=== PATIENT | female | born 1935 | race Caucasian/White ===

== ENCOUNTER 2016-12-06 09:07 | Outpatient (CLI) | payer MEDICARE, BC ==
[2011-12-03 22:31] VITALS: O2SAT 93
== END 2016-12-06 09:08 | disposition home or self-care (01) | DRG 556 ==
LOC: CONVCARE 09:07
PROVIDERS: ATTEND Orthopaedic Surgery
DX: M25.552 Pain in left hip (principal)

== ENCOUNTER 2017-10-16 09:53 | Emergency (ER) | payer MEDICARE, BC ==
[2017-10-16 10:29] VITALS: RESP 20; TEMP 96.4
[2017-10-16] MEDS ORDERED: SODIUM CHLORIDE 0.9% 1000ML 1,000 ML IV ONE (10:38)
[2017-10-16] MEDS ORDERED: ONDANSETRON HCL 4 MG/2 ML SOL IV ONE (10:41)
[2017-10-16] MEDS ORDERED: ONDANSETRON HCL 4 MG/2 ML SOL ONE (10:48)
[2017-10-16 11:21] LABS: ALBUMIN 3.7 gm/dl (3.4-5.0); BILIRUBIN,TOTAL 0.8 mg/dl (0.2-1.0); CALCIUM 9.3 mg/dl (8.5-10.1); CARBON DIOXIDE 29.1 mEq/L (21-32); CREATININE 1.05 mg/dl (0.60-1.00); POTASSIUM 3.1 mMol/L (3.5-5.1); TOTAL PROTEIN 6.6 gm/dl (6.4-8.2)
[2017-10-16] MEDS ORDERED: POTASSIUM CHLORIDE 10 MEQ TER PO ONE (11:44)
[2017-10-16 11:48] LABS: BASOPHILS % (AUTO) 1 % (0-3); EOSINOPHILS % (AUTO) 0 % (0-9); HEMATOCRIT 40 % (35-47); HEMOGLOBIN 13.2 gm/dl (12.0-15.5); LYMPHOCYTES % (AUTO) 21.2 % (10-50); MEAN CORPUSCULAR HEMOGLOBIN 27.2 pg (27.0-32.0); MEAN CORPUSCULAR HGB CONC 32.7 gm/dl (32.0-36.0); MEAN CORPUSCULAR VOLUME 83 fL (81-99); MONOCYTES % (AUTO) 10.1 % (0-12); NEUTROPHILS % (AUTO) 67.7 % (37-80)
[2017-10-16] MEDS ORDERED: POTASSIUM CHLORIDE 10 MEQ TER ONE (11:49)
[2017-10-16 12:25] LABS: APPEARANCE,URINE Clear; BILIRUBIN,URINE NEGATIVE (NEGATIVE); COLOR,URINE Yellow; GLUCOSE, URINE (UA) NEGATIVE (NEGATIVE); KETONES,URINE NEGATIVE (NEGATIVE); LEUKOCYTE ESTERASE ,URINE NEGATIVE (NEGATIVE); NITRATE,URINE NEGATIVE (NEGATIVE); OCCULT BLOOD,URINE NEGATIVE (NEG-TRACE); UROBILINOGEN,URINE 0.2 (0.2-1.0 EU)
[2017-10-16 12:35] LABS: BACTERIA TRACE (< 1+); CRYSTALS NEGATIVE (0-3 AVE/HPF); EPITHELIAL CELLS 0-2 (SQUAMOUS); RBC,URINE NEG (0-3AV/HPF); WBC,URINE 0-1 (0-5AV/HPF)
[2017-10-16 14:20] VITALS: BP 164/95; PULSE 80; O2SAT 100
== END 2017-10-16 14:14 | disposition home or self-care (01) | DRG 392 ==
LOC: ED 09:53
DX: K21.9 Gastro-esophageal reflux disease without esophagitis (principal)
CPT/HCPCS: 36415; 74177; 80053; 81001; 85025; 96365; 96374; 99284; 99285; J2405; Q9967; A9270-GY

== ENCOUNTER 2017-11-01 09:37 | Inpatient (IN) | payer MEDICARE, BC ==
[2017-11-01] MEDS ORDERED: SODIUM CHLORIDE 0.9% FLUSH 10 ML SOL IV PRN (09:46)
[2017-11-01] MEDS ORDERED: MAGNESIUM HYDROXIDE 30 ML SUS PO PRN (09:50)
[2017-11-01] MEDS ORDERED: ONDANSETRON HCL 4 MG/2 ML SOL IV PRN (09:52)
[2017-11-01] MEDS ORDERED: SODIUM CHLORIDE 0.9% 1000 ML SOL IV SCH (10:00)
[2017-11-01] MEDS: POLYETHYLENE GLYCOL 17 GM/1 TBS PDS PO SCH (11:19)
[2017-11-01] MEDS: SODIUM CHLORIDE 0.9% 1000ML 1,000 ML IV SCH ×3 (12:16→22:13)
[2017-11-01] MEDS ORDERED: ACETAMINOPHEN 500 MG 500 MG TAB PO PRN ×2 (12:19→15:32)
[2017-11-01 13:42] LABS: APPEARANCE,URINE Clear; BILIRUBIN,URINE NEGATIVE (NEGATIVE); COLOR,URINE Light yellow; GLUCOSE, URINE (UA) NEGATIVE (NEGATIVE); KETONES,URINE NEGATIVE (NEGATIVE); LEUKOCYTE ESTERASE ,URINE TRACE (NEGATIVE); NITRATE,URINE NEGATIVE (NEGATIVE); OCCULT BLOOD,URINE NEGATIVE (NEG-TRACE)
[2017-11-01] MEDS ORDERED: [UNRECOGNIZED DRUG - OTHER] LEFTEYE SCH (14:00)
[2017-11-01] MEDS ORDERED: PEG LEFTEYE SCH (14:00)
[2017-11-01] MEDS ORDERED: PROPYLENE GLYCOL LEFTEYE SCH (14:00)
[2017-11-01 14:18] LABS: RBC,URINE NEGATIVE (0-3AV/HPF); WBC,URINE 0-1 (0-5AV/HPF)
[2017-11-01 14:19] LABS: BACTERIA 1+ (< 1+); CRYSTALS NEGATIVE (0-3 AVE/HPF); EPITHELIAL CELLS 0-1 (SQUAMOUS)
[2017-11-01 20:31] VITALS: RESP 16
[2017-11-01] MEDS: ENOXAPARIN 40 MG SOL SC SCH (20:34)
[2017-11-01] MEDS: PEG-400/PROPYLENE GLYCOL 1 DROP SOL LEFTEYE SCH (20:35)
[2017-11-01] MEDS: SIMVASTATIN 20 MG TAB PO SCH (20:35)
[2017-11-01] MEDS: TRAZODONE HYDROCHLORIDE 50 MG TAB PO SCH (20:35)
[2017-11-01] MEDS ORDERED: ESCITALOPRAM 10 MG TAB PO SCH (21:00)
[2017-11-02] MEDS: SODIUM CHLORIDE 0.9% 1000ML 1,000 ML IV SCH ×3 (06:24→22:50)
[2017-11-02] MEDS: LEVOTHYROXINE SODIUM 50 MCG TAB PO SCH (06:28)
[2017-11-02] MEDS ORDERED: LEVOTHYROXINE 0.025MG 0.025 MG TAB PO SCH (07:00)
[2017-11-02 07:12] LABS: BASOPHILS % (AUTO) 1 % (0-3); EOSINOPHILS % (AUTO) 0 % (0-9); HEMATOCRIT 39 % (35-47); HEMOGLOBIN 12.8 gm/dl (12.0-15.5); LYMPHOCYTES % (AUTO) 23.6 % (10-50); MEAN CORPUSCULAR HEMOGLOBIN 27.2 pg (27.0-32.0); MEAN CORPUSCULAR HGB CONC 32.9 gm/dl (32.0-36.0); MEAN CORPUSCULAR VOLUME 83 fL (81-99); MONOCYTES % (AUTO) 9.2 % (0-12); NEUTROPHILS % (AUTO) 65.8 % (37-80)
[2017-11-02 07:19] LABS: CALCIUM 8.3 mg/dl (8.5-10.1); CREATININE 0.95 mg/dl (0.60-1.00); POTASSIUM 4.2 mMol/L (3.5-5.1)
[2017-11-02 07:24] LABS: CARBON DIOXIDE 27.2 mEq/L (21-32)
[2017-11-02] MEDS: ASPIRIN EC 81 MG PO SCH (08:50)
[2017-11-02] MEDS: METFORMIN HYDROCHLORIDE 500 MG TAB PO SCH (08:50)
[2017-11-02] MEDS: ESCITALOPRAM 10 MG TAB PO SCH ×2 (08:57→21:21)
[2017-11-02] MEDS: LISINOPRIL 20 MG TAB PO SCH (08:57)
[2017-11-02] MEDS: PEG-400/PROPYLENE GLYCOL 1 DROP SOL LEFTEYE SCH ×3 (08:57→21:19)
[2017-11-02] MEDS: POLYETHYLENE GLYCOL 17 GM/1 TBS PDS PO SCH (08:57)
[2017-11-02] MEDS ORDERED: PEG OP SCH (09:00)
[2017-11-02] MEDS ORDERED: PROPYLENE GLYCOL OP SCH (09:00)
[2017-11-02] MEDS ORDERED: ENOXAPARIN 40 MG SOL SC SCH (09:00)
[2017-11-02] MEDS ORDERED: MAGNESIUM CITRATE SOL PO PRN (09:27)
[2017-11-02 15:57] VITALS: TEMP 98.1
[2017-11-02] MEDS ORDERED: HYDROCORTISONE 2.5% TOP PRN (18:14)
[2017-11-02] MEDS: SIMVASTATIN 20 MG TAB PO SCH (21:08)
[2017-11-02] MEDS: ENOXAPARIN 40 MG SOL SC SCH (21:12)
[2017-11-02] MEDS: TRAZODONE HYDROCHLORIDE 50 MG TAB PO SCH (21:13)
[2017-11-03] MEDS: SODIUM CHLORIDE 0.9% 1000ML 1,000 ML IV SCH (04:33)
[2017-11-03] MEDS: PANTOPRAZOLE SODIUM 40 MG ECT PO SCH ×2 (06:30→08:57)
[2017-11-03] MEDS: LEVOTHYROXINE SODIUM 50 MCG TAB PO SCH (06:31)
[2017-11-03 07:30] LABS: BASOPHILS % (AUTO) 1 % (0-3); EOSINOPHILS % (AUTO) 1 % (0-9); HEMATOCRIT 38 % (35-47); HEMOGLOBIN 12.2 gm/dl (12.0-15.5); LYMPHOCYTES % (AUTO) 29.7 % (10-50); MEAN CORPUSCULAR HGB CONC 32.3 gm/dl (32.0-36.0); MEAN CORPUSCULAR VOLUME 84 fL (81-99); MONOCYTES % (AUTO) 9.2 % (0-12); NEUTROPHILS % (AUTO) 59.3 % (37-80)
[2017-11-03 07:38] LABS: CALCIUM 8.4 mg/dl (8.5-10.1); CARBON DIOXIDE 26.4 mEq/L (21-32); CREATININE 0.94 mg/dl (0.60-1.00); POTASSIUM 3.6 mMol/L (3.5-5.1)
[2017-11-03] MEDS: METFORMIN HYDROCHLORIDE 500 MG TAB PO SCH (08:54)
[2017-11-03] MEDS: LISINOPRIL 20 MG TAB PO SCH (08:54)
[2017-11-03] MEDS: ASPIRIN EC 81 MG PO SCH (08:54)
[2017-11-03] MEDS: PEG-400/PROPYLENE GLYCOL 1 DROP SOL LEFTEYE SCH (08:55)
[2017-11-03] MEDS: POLYETHYLENE GLYCOL 17 GM/1 TBS PDS PO SCH (08:58)
[2017-11-03 09:16] VITALS: PULSE 76; O2SAT 97
[2017-11-03 15:31] VITALS: BP 143/81
== END 2017-11-03 10:50 | disposition home or self-care (01) | DRG 641 ==
LOC: ACUTE CARE 09:39
PROVIDERS: ADMIT Family Medicine; ATTEND Family Medicine
DX: E87.1 Hypo-osmolality and hyponatremia (principal); R11.0 Nausea; I10 Essential (primary) hypertension; K59.00 Constipation, unspecified; E11.9 Type 2 diabetes mellitus without complications; F32.9 Major depressive disorder, single episode, unspecified
CPT/HCPCS: 36415; 80048; 81001; 82962; 85025; 87088; J1650; J2405; A9270-GY

== ENCOUNTER 2017-11-07 06:46 | Emergency (ER) | payer MEDICARE, BC ==
[2017-11-07 07:10] VITALS: TEMP 97.8
[2017-11-07] MEDS ORDERED: MECLIZINE HYDROCHLORIDE 12.5 MG TAB PO ONE (07:15)
[2017-11-07] MEDS ORDERED: MECLIZINE HYDROCHLORIDE 12.5 MG TAB ONE (07:17)
[2017-11-07 07:27] LABS: BASOPHILS % (AUTO) 1 % (0-3); EOSINOPHILS % (AUTO) 0 % (0-9); HEMATOCRIT 40 % (35-47); HEMOGLOBIN 12.8 gm/dl (12.0-15.5); LYMPHOCYTES % (AUTO) 20.4 % (10-50); MEAN CORPUSCULAR HEMOGLOBIN 26.9 pg (27.0-32.0); MEAN CORPUSCULAR HGB CONC 32.1 gm/dl (32.0-36.0); MEAN CORPUSCULAR VOLUME 84 fL (81-99); MONOCYTES % (AUTO) 8.7 % (0-12); NEUTROPHILS % (AUTO) 69.8 % (37-80)
[2017-11-07 07:34] LABS: CALCIUM 8.9 mg/dl (8.5-10.1); CREATININE 0.99 mg/dl (0.60-1.00); POTASSIUM 3.7 mMol/L (3.5-5.1)
[2017-11-07 07:52] VITALS: BP 171/104; PULSE 71; RESP 20; O2SAT 95
== END 2017-11-07 08:10 | disposition home or self-care (01) | DRG 641 ==
LOC: ED 06:46
DX: E86.0 Dehydration (principal); E87.1 Hypo-osmolality and hyponatremia; E11.9 Type 2 diabetes mellitus without complications
CPT/HCPCS: 36415; 80048; 82962; 85025; 93005; 99282; 99284; A9270-GY

== ENCOUNTER 2017-11-23 12:39 | Inpatient (IN) | payer MEDICARE, BC ==
[2017-11-23 13:29] LABS: BASOPHILS % (AUTO) 1 % (0-3); EOSINOPHILS % (AUTO) 0 % (0-9); HEMATOCRIT 41 % (35-47); HEMOGLOBIN 13.5 gm/dl (12.0-15.5); LYMPHOCYTES % (AUTO) 17.6 % (10-50); MEAN CORPUSCULAR HGB CONC 32.6 gm/dl (32.0-36.0); MEAN CORPUSCULAR VOLUME 83 fL (81-99); MONOCYTES % (AUTO) 11.6 % (0-12); NEUTROPHILS % (AUTO) 69.8 % (37-80)
[2017-11-23 13:46] LABS: ALBUMIN 3.7 gm/dl (3.4-5.0); ALKALINE PHOSPHATASE 76 IU/L (46-116); ALT 27 IU/L (14-63); AST 18 IU/L (15-37); BILIRUBIN,TOTAL 0.5 mg/dl (0.2-1.0); BLOOD UREA NITROGEN 11 mg/dl (7-18); CALCIUM 9.2 mg/dl (8.5-10.1); CARBON DIOXIDE 27.7 mEq/L (21-32); CHLORIDE 92 mMol/L (98-107); CREATININE 1.13 mg/dl (0.60-1.00); GLUCOSE 110 mg/dl (74-106); SODIUM 125 mMol/L (136-145); TOTAL PROTEIN 6.7 gm/dl (6.4-8.2); TROP I < 0.017 ng/ml (0.000-0.056)
[2017-11-23 13:55] LABS: APPEARANCE,URINE Clear; BILIRUBIN,URINE NEGATIVE (NEGATIVE); COLOR,URINE Yellow; GLUCOSE, URINE (UA) NEGATIVE (NEGATIVE); KETONES,URINE NEGATIVE (NEGATIVE); LEUKOCYTE ESTERASE ,URINE TRACE (NEGATIVE); NITRATE,URINE NEGATIVE (NEGATIVE); OCCULT BLOOD,URINE NEGATIVE (NEG-TRACE); UROBILINOGEN,URINE 0.2 (0.2-1.0 EU)
[2017-11-23 14:06] LABS: BACTERIA 1+ (< 1+); CRYSTALS NEGATIVE (0-3 AVE/HPF); RBC,URINE NEGATIVE (0-3AV/HPF); WBC,URINE 0-2 (0-5AV/HPF)
[2017-11-23] MEDS ORDERED: SODIUM CHLORIDE 0.9% 1000ML 1,000 ML IV ONE (14:34)
[2017-11-23] MEDS ORDERED: TEMAZEPAM 15MG 15 MG CAP PO PRN (18:49)
[2017-11-23 19:15] LABS: CALCIUM 8.8 mg/dl (8.5-10.1); CARBON DIOXIDE 28.8 mEq/L (21-32); CREATININE 1.06 mg/dl (0.60-1.00); POTASSIUM 3.6 mMol/L (3.5-5.1)
[2017-11-23] MEDS ORDERED: SIMVASTATIN 20 MG TAB PO SCH (21:00)
[2017-11-23] MEDS: SODIUM CHLORIDE 0.9% FLUSH 10 ML SOL IV SCH (21:50)
[2017-11-23] MEDS: Non-Formulary Medication MISC (Peg-400/Propylene Glycol 1 DROP) EACHEYE SCH (21:59)
[2017-11-24] MEDS: SODIUM CHLORIDE 0.9% FLUSH 10 ML SOL IV SCH ×2 (06:28→13:29)
[2017-11-24] MEDS ORDERED: LEVOTHYROXINE SODIUM 50 MCG TAB PO SCH (06:30)
[2017-11-24 07:23] LABS: CARBON DIOXIDE 27.9 mEq/L (21-32); CREATININE 0.98 mg/dl (0.60-1.00); POTASSIUM 3.9 mMol/L (3.5-5.1)
[2017-11-24 07:24] LABS: BASOPHILS % (AUTO) 1 % (0-3); EOSINOPHILS % (AUTO) 0 % (0-9); HEMATOCRIT 41 % (35-47); LYMPHOCYTES % (AUTO) 25.9 % (10-50); MEAN CORPUSCULAR HEMOGLOBIN 26.7 pg (27.0-32.0); MEAN CORPUSCULAR VOLUME 83 fL (81-99); MONOCYTES % (AUTO) 10.6 % (0-12)
[2017-11-24] MEDS: Non-Formulary Medication MISC (Peg-400/Propylene Glycol 1 DROP) EACHEYE SCH (08:53)
[2017-11-24] MEDS ORDERED: POLYETHYLENE GLYCOL 17 GM/1 TBS PDS PO SCH (09:00)
[2017-11-24] MEDS ORDERED: AMLODIPINE 5 MG TAB PO SCH (09:00)
[2017-11-24] MEDS ORDERED: ENOXAPARIN 40 MG SOL SC SCH (09:00)
[2017-11-24] MEDS ORDERED: ASCORBIC ACID/COPPER/LUTEIN/ 1 CAP CAP PO SCH (09:00)
[2017-11-24] MEDS ORDERED: ASPIRIN EC 81 MG PO SCH (09:00)
[2017-11-24] MEDS ORDERED: LISINOPRIL 20 MG TAB PO SCH (10:00)
[2017-11-24] MEDS ORDERED: COSYNTROPIN IJ ONE (13:35)
[2017-11-24 17:01] LABS: BASOPHILS % (AUTO) 1 % (0-3); EOSINOPHILS % (AUTO) 0 % (0-9); HEMATOCRIT 46 % (35-47); HEMOGLOBIN 14.7 gm/dl (12.0-15.5); LYMPHOCYTES % (AUTO) 28.8 % (10-50); MEAN CORPUSCULAR HEMOGLOBIN 26.8 pg (27.0-32.0); MEAN CORPUSCULAR HGB CONC 32.2 gm/dl (32.0-36.0); MEAN CORPUSCULAR VOLUME 83 fL (81-99); MONOCYTES % (AUTO) 11.3 % (0-12); NEUTROPHILS % (AUTO) 58.5 % (37-80)
[2017-11-24] MEDS ORDERED: LABETALOL HYDROCHLORIDE 5 MG/ML SOL IV ONE ×2 (17:04→17:05)
[2017-11-24] MEDS ORDERED: ALTEPLASE, RECOMBINANT 50 MG PDS IV ONE ×2 (17:09→17:10)
[2017-11-24 17:13] LABS: BLOOD UREA NITROGEN 13 mg/dl (7-18); CALCIUM 9.4 mg/dl (8.5-10.1); CARBON DIOXIDE 28.5 mEq/L (21-32); CHLORIDE 90 mMol/L (98-107); CREATININE 1.02 mg/dl (0.60-1.00); GLUCOSE 97 mg/dl (74-106); INR 0.97 (0.86-1.12); POTASSIUM 4.2 mMol/L (3.5-5.1); SODIUM 126 mMol/L (136-145); TROP I < 0.017 ng/ml (0.000-0.056)
[2017-11-24 18:04] VITALS: TEMP 97.9
[2017-11-24 18:27] VITALS: BP 155/88; PULSE 79; RESP 13; O2SAT 96
[2017-11-24] MEDS ORDERED: PEG-400/PROPYLENE GLYCOL 1 DROP SOL EACHEYE SCH (21:00)
== END 2017-11-24 17:45 | disposition short-term general hospital (02) | DRG 641 ==
LOC: ED 12:39 → UNDOADMIN 16:16 → ACUTE CARE 16:16
PROVIDERS: ADMIT Family Medicine; ATTEND Family Medicine
PROC: F01ZCZZ Transfer Assessment (ICD-10-PCS; principal; 2017-11-24)
PROC: F01ZBZZ Bed Mobility Assessment (ICD-10-PCS; 2017-11-24)
DX: E87.1 Hypo-osmolality and hyponatremia (principal); G45.9 Transient cerebral ischemic attack, unspecified; E11.9 Type 2 diabetes mellitus without complications; I10 Essential (primary) hypertension; R42 Dizziness and giddiness; R40.2362 Coma scale, best motor response, obeys commands, at arrival to emergency department; R40.2142 Coma scale, eyes open, spontaneous, at arrival to emergency department; R40.2252 Coma scale, best verbal response, oriented, at arrival to emergency department; R29.701 NIHSS score 1; R41.0 Disorientation, unspecified
CPT/HCPCS: 36415; 70450; 80048; 80053; 81001; 82962; 84300; 84443; 84484; 85025; 85610; 85730; 87088; 93005; 93012; 96365; 99284; J1650; J2997; A9270-GY; J3490